=== PATIENT | male | born 1945 | race Asian ===

== ENCOUNTER 2018-03-31 10:29 | Emergency (ER) | payer MEDICAID ==
[~2018-03-31] VITALS: Ht 170.2 cm; Wt 63.5 kg
[2018-03-31 10:30] VITALS: BP 122/80
[2018-03-31] MEDS ORDERED: METOPROLOL TART25 MG GT (11:05)
[2018-03-31] MEDS ORDERED: MIRTAZAPINE7.5 MG GT (11:05)
[2018-03-31] MEDS ORDERED: GABAPENTIN100 MG GT (11:05)
[2018-03-31] MEDS ORDERED: BISACODYL10 M1 RC (11:05)
[2018-03-31] MEDS ORDERED: ZOFRAN ODT8 MG GT (11:05)
[2018-03-31] MEDS ORDERED: NOVOLIN R100 UNIT/1 SUBQ (11:05)
[2018-03-31] MEDS ORDERED: ANTI-DIARRHEA2 MG GT (11:05)
[2018-03-31] MEDS ORDERED: LISINOPRIL40 MG GT (11:05)
[2018-03-31] MEDS ORDERED: MELATONIN3 M1 GT (11:05)
[2018-03-31] MEDS ORDERED: AMLODIPINE BESYL5 MG GT (11:05)
[2018-03-31] MEDS ORDERED: ACETAMINOP160 MG/5 M GT (11:05)
[2018-03-31] MEDS ORDERED: ASCORBIC ACID500 MG GT (11:05)
[2018-03-31] MEDS ORDERED: ATIVAN0.5 MG GT (11:05)
[2018-03-31] MEDS ORDERED: MULTI-DELYN237 ML GT (11:05)
[2018-03-31] MEDS ORDERED: GLUCAGON W/DILUE1 MG IM (11:05)
[2018-03-31] MEDS ORDERED: MILK OF MA400 MG/51 GT (11:05)
[2018-03-31] MEDS ORDERED: IPRATROPIU0.2 MG/1 M HHN (11:05)
[2018-03-31] MEDS ORDERED: OMEPRAZOLE20 M3 GT (11:05)
[2018-03-31] MEDS ORDERED: Gastrograffin 30ml ORAL ONE (11:15)
[2018-03-31 11:30] VITALS: BP 109/80
--- NOTE | 2018-03-31 12:37 | Emergency Room Report ---
History of Present Illness General Chief Complaint: Malfunctioning Gastric Tube Source: Medical Record Present Illness HPI Mr. Wallis was brought to ED from SNF for dislodgement of feeding tube. Patient has feeding tube intact. The feeding tube brought with patient appears to be from another patient. Patient is stable. Nurse stated that samuel was placed into gastrostomy. Allergies: Coded Allergies: No Known Allergies (Unverified , 03/31/18) Nursing Documentation-PM Past Medical History: No History, Except For Hx Cardiac Problems: Yes - a-fib Hx Hypertension: Yes Hx COPD: No - tracheosotomy Hx Diabetes: Yes - type II Hx Gastrointestinal Problems: Yes - dysphagia, g-tube, GERD History Of Psychiatric Problem: Yes - anxiety, depression, bipolar Hx Neurological Problems: No - muscle weakness Review of Systems All Other Systems: limited - due to patient's condition Physical Exam Vital Signs Date Time Temp Pulse Resp B/P (MAP) Pulse Ox O2 Delivery O2 Flow Rate FiO2 03/31/18 10:29 96.4 66 22 140/84 98 T-piece 4.0 Sp02 EP Interpretation: reviewed, normal General Appearance: alert, non-toxic, Chronically Ill Head: normocephalic, atraumatic Eyes: bilateral eye normal inspection ENT: moist mucus membranes Respiratory: no respiratory distress Gastrointestinal: soft, other - gastrotomy tube intact, able to suction gastric contents Neurologic: alert Psychiatric: depressed affect Medical Decision Making Diagnostic Impression: Primary Impression: Gastrostomy in place ER Course I spoke with charge nurse about the patient. She was unable to give information. Our nurse took report. We read the same documentation provided. Since patient has gastrostomy in place which is functional, I suspect patient was mistaken for another individual. Samuel is not in the ostomy site as documented. G tube check with gastrograffin confirm placement and function. dc'd back to SNF. Last Vital Signs Date Time Temp Pulse Resp B/P (MAP) Pulse Ox O2 Delivery O2 Flow Rate FiO2 03/31/18 11:30 97.5 67 18 109/80 100 Trach Collar 3.0 Disposition: HOME, SELF-CARE Condition: Stable Yesi Freeman MD Mar 31, 2018 12:37
[2018-03-31 15:01] VITALS: BP 115/80
--- NOTE | 2018-03-31 15:32 | Diagnostic Imaging Report ---
Indication: Status post gastrostomy replacement Technique: Supine view of the abdomen after injection of water-soluble contrast into gastrostomy Comparison: none Findings: Contrast opacifies the stomach. No contrast extravasation is demonstrated. There are prominent gas-filled small bowel loops in the left upper quadrant. Impression: Satisfactory position of gastrostomy tube
== END 2018-03-31 15:01 ==
LOC: EDBD 10:29 → EMR 12:50
DX: Z43.1 Encounter for attention to gastrostomy (principal); I48.91 Unspecified atrial fibrillation; I10 Essential (primary) hypertension; Z93.0 Tracheostomy status; E11.9 Type 2 diabetes mellitus without complications; K21.9 Gastro-esophageal reflux disease without esophagitis; F41.9 Anxiety disorder, unspecified; F31.9 Bipolar disorder, unspecified
CPT/HCPCS: 74018; 99283; Q9963